=== PATIENT | male | born 1950 | race Caucasian/White ===

== ENCOUNTER 2018-02-15 13:00 | Outpatient (RCR) | payer OTHER, MEDICARE | END 2018-02-17 07:20 | disposition home or self-care (01) | LOC: WSPT 13:00 | DX: M54.42 Lumbago with sciatica, left side (principal); M25.552 Pain in left hip; R26.2 Difficulty in walking, not elsewhere classified ==

== ENCOUNTER 2019-04-24 13:27 | Day surgery (SDC) | payer OTHER ==
[2019-04-24] VITALS (8 sets, daily range): BP systolic 111–134; BP diastolic 36–83; PULSE 70–85; TEMP 98.1
[~2019-04-24] VITALS: Ht 177.8 cm; Wt 102.7 kg
[2019-04-24 14:39] LABS: BASO % 0.2 % (0.0-2.0); EOS # 0.1 (0.0-0.7); EOS % 0.6 % (0-4.0); GRAN # 6.6 (1.4-6.5); HEMATOCRIT 47.2 % (42.0-52.0); HEMOGLOBIN 16.2 g/dl (13.5-18.0); LYMPH # 1.6 (1.2-3.4); LYMPH % 17.9 % (20.0-51.0); MEAN CELL VOLUME 86 fl (80.0-100.0); MEAN CORPUSCULAR HEMOGLOBIN 29 pg (27.0-31.0); MEAN CORPUSCULAR HGB CONC 34 g/dl (33.0-37.0); MEAN PLATELET VOLUME 9.5 fl (7.4-10.4); MONO # 0.7 (0.1-0.6); MONO % 8.1 % (1.7-9.3); PLATELET COUNT 251 K/mm3 (130-400); RED BLOOD COUNT 5.52 M/mm3 (4.20-5.60); REDCELL DISTRIBUTION WIDTH-CV 12.3 % (11.5-14.5)
[2019-04-24 14:46] LABS: ALBUMIN 4.5 gm/dL (3.5-5.0); BILIRUBIN,TOTAL 1.1 mg/dL (0.0-1.0); C-REACTIVE PROTEIN 5.4 mg/dL (0.0-0.9); CALCIUM 8.9 mg/dL (8.4-10.2); CREATININE, serum 0.95 (0.66-1.25); POTASSIUM 3.8 mmol/L (3.4-5.0); TOTAL PROTEIN 7.6 gm/dL (6.4-8.2)
[2019-04-24 15:28] LABS: COLLECTION METHOD CLEAN CATCH
[2019-04-24] MEDS ORDERED: NORVASC 10MG10 MG PO (15:29)
[2019-04-24] MEDS ORDERED: VITAMIN D31000 I1 PO (15:29)
[2019-04-24] MEDS ORDERED: NEURONTIN100 MG/CAP PO (15:29)
[2019-04-24] MEDS ORDERED: COZAAR100 MG PO (15:30)
[2019-04-24] MEDS ORDERED: MOBIC15 MG PO (15:30)
[2019-04-24] MEDS ORDERED: HCTZ 25MG TAB25 MG PO (15:30)
[2019-04-24] MEDS ORDERED: EFFEXOR 75M75 MG/TAB PO (15:31)
[2019-04-24 15:38] LABS: MUCOUS Present /lpf; PH 7 (5-8); SQUAMOUS EPITHELIAL None Seen /hpf; URINE APPEARANCE Clear; URINE BACTERIA None Seen /hpf; URINE BILIRUBIN Negative (NEGATIVE); URINE BLOOD 1+ (NEGATIVE); URINE COLOR Yellow; URINE GLUCOSE Negative (NEGATIVE); URINE KETONE Negative (NEGATIVE); URINE LEUKOCYTE ESTERASE Negative (NEGATIVE); URINE NITRATE Negative (NEGATIVE); URINE PROTEIN(semi-quant) Negative (NEGATIVE); URINE RBC 0-2 /hpf; URINE UROBILINOGEN Negative (NEGATIVE)
[2019-04-24] MEDS ORDERED: PERCOCET 325 MG1 TA2 PO (17:32)
[2019-04-24] MEDS ORDERED: COLACE 100100 MG/CAP PO (17:33)
[2019-04-24] MEDS ORDERED: MOTRIN 600600 MG/TAB PO (17:33)
--- NOTE | 2019-04-24 20:00 | NUR ---
Patient in bed, is alert and oriented x4. [place] box provided at this time. Pts daughter is at bedside. Pt denies pain, reports "soreness" only. IV site to left outer forearm without redness or swelling. VSS.
--- NOTE | 2019-04-24 21:00 | NUR ---
Patient up to bathroom with steady gait, voids yellow urine without problem. Lap sites x3 to abdomen, glued and dry. Denies nausea or pain at this time.
[2019-04-25 00:15] VITALS: BP 130/69; PULSE 76; TEMP 98.1
--- NOTE | 2019-04-25 00:30 | NUR ---
Patient up to bathroom to void. Does not like the SCDS, will leave off at this time. IVF infusing without problem. No complaints of pain at this time.
[2019-04-25 04:15] VITALS: BP 127/63; PULSE 79; TEMP 97.4
--- NOTE | 2019-04-25 04:30 | NUR ---
Pt is taking oral fluids well, IVF capped. Denies pain.
[2019-04-25 07:43] VITALS: BP 123/67; PULSE 80; TEMP 98.1
--- NOTE | 2019-04-25 10:30 | NUR ---
Patient is doing well today. He has been up moving around in the room. Minimal complaints of pain with movement. Denies nausea. Patient is passing flatus without problems. Tolerating food well. Patient should discharge this afternoon. No other changes at this time. Call light within reach.
--- NOTE | 2019-04-25 10:41 | NUR ---
Initial visit; Patient and family thanked [employer] Prom[employer] Coordinator for offering prayer of thanks for his healing and blessings around his good care at our hospital. Patient thanked [employer] Prom[employer] Coordinator for keeping him in her prayers.
[2019-04-25 11:42] VITALS: BP 149/69; PULSE 92; TEMP 99
--- NOTE | 2019-04-25 13:30 | NUR ---
Patient is discharging home. Discharge instructions discussed with patient. No questions verbalized. INT discontinued. Patients family is at bedside to give him a ride home. Explained when follow up appointment is. 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 Patient verbalized understanding. Patient walked out with Kris OLVERA.
== END 2019-04-25 13:30 | disposition home or self-care (01) ==
LOC: COL.ER 13:27 → SDCO 13:27 → SURG 13:27 → EDSTATUS 16:30 → SDCO 17:42 → SURG 17:42 → SDCO 18:27
PROVIDERS: Emergency Medicine
DX: K35.80 Unspecified acute appendicitis (principal); I10 Essential (primary) hypertension; F32.9 Major depressive disorder, single episode, unspecified; Z88.1 Allergy status to other antibiotic agents; Z88.8 Allergy status to other drugs, medicaments and biological substances
CPT/HCPCS: OP; J1100; J1885; J2405; J2704; J3010; J7030; J7120; Q9967